=== PATIENT | male | born 1965 | race Caucasian/White ===

== ENCOUNTER 2020-01-17 12:28 | Inpatient (IN) | payer OTHER ==
[2020-01-17] MEDS ORDERED: NICOTINE POLACRILEX 2 MG GUM BUC PRN (14:30)
[2020-01-17] MEDS ORDERED: IBUPROFEN 400 MG TABLET (FP) PO PRN (14:30)
[2020-01-17] MEDS ORDERED: chlordiazePOXIDE HCL 25 MG CAPSULE PO PRN (14:30)
[2020-01-17] MEDS ORDERED: ONDANSETRON *ODT* 4 MG TABLET SL PRN (14:30)
[2020-01-17] MEDS ORDERED: MAGNESIUM HYDROX 2400MG/30ML ORAL SUSPENSION 30 ML CUP PO PRN (14:30)
[2020-01-17] MEDS ORDERED: ACETAMINOPHEN 325 MG TABLET (FP) PO PRN ×2 (14:30)
[2020-01-17] MEDS ORDERED: MENTHOL/PHENOL 1 EACH UD MM PRN (14:30)
[2020-01-17] MEDS ORDERED: METHOCARBAMOL 500 MG TABLET PO PRN (14:30)
[2020-01-17] MEDS ORDERED: MAGNESIUM CITRATE 300 ML BOTTLE PO PRN (14:30)
[2020-01-17 15:30] VITALS: BMI 20.6
[2020-01-17] MEDS: NICOTINE 21 MG/24 HOURS TOPICAL PATCH TD SCH (15:38)
[2020-01-17] MEDS: hydrOXYzine PAMOATE 25 MG CAPSULE (FP) PO SCH ×2 (17:36→22:19)
[2020-01-17] MEDS: chlordiazePOXIDE HCL 25 MG CAPSULE PO SCH ×2 (17:36→22:19)
[2020-01-17] MEDS: BISMUTH SUBSALICYLATE 262 MG/15 ML BTL PO PRN (22:19)
[2020-01-17] MEDS: THIAMINE HCL 100 MG TABLET (FP) PO SCH (22:19)
[2020-01-17] MEDS: MELATONIN 5 MG TABLETS PO SCH (22:19)
[2020-01-18] MEDS: hydrOXYzine PAMOATE 25 MG CAPSULE (FP) PO SCH ×5 (05:32→22:14)
[2020-01-18] MEDS: chlordiazePOXIDE HCL 25 MG CAPSULE PO SCH ×4 (05:32→22:14)
[2020-01-18] MEDS ORDERED: METHADONE HCL 10 MG TABLET PO ONE (08:44)
[2020-01-18] MEDS ORDERED: METHADONE 80 MG, METHADONE 30 MG PO ONE (09:15)
[2020-01-18] MEDS ORDERED: METHADONE HCL 10 MG TABLET ONE (09:17)
[2020-01-18] MEDS ORDERED: METHADONE HCL 40 MG DISPERSABLE TABLET ONE (09:18)
[2020-01-18] MEDS: PRENATAL VITAMINS W/ FOLIC ACID TABLET (FP) PO SCH (10:23)
[2020-01-18] MEDS: NICOTINE 21 MG/24 HOURS TOPICAL PATCH TD SCH (10:23)
[2020-01-18 13:08] LABS: POTASSIUM 3.8 mmol/L (3.5-5.1)
[2020-01-18 13:10] LABS: HEMOGLOBIN 11.1 GM/dL (11.7-16.9); MCH 26.4 pg (25.7-33.7); MCHC 31.8 g/dl (32.0-35.9); MEAN CELL VOLUME 82.9 fl (80-96); MEAN PLT VOLUME 9.6 fl (7.5-11.1); PLATELET COUNT 76 K/MM3 (134-434); RBC 4.22 M/mm3 (4.00-5.60); RDW 16.1 % (11.9-15.9); WHITE BLOOD COUNT 4.7 K/mm3 (4.0-10.0)
[2020-01-18 13:15] LABS: CALCIUM 8.5 mg/dL (8.5-10.1)
[2020-01-18 13:16] LABS: ALBUMIN 2.8 g/dl (3.4-5.0); BLOOD UREA NITROGEN 17.5 mg/dL (7-18)
[2020-01-18 13:18] LABS: CREATININE 0.7 mg/dL (0.55-1.3)
[2020-01-18 13:19] LABS: BILIRUBIN,TOTAL 1.1 mg/dL (0.2-1)
[2020-01-18 13:20] LABS: TOT PROT 6.5 g/dl (6.4-8.2)
[2020-01-18] MEDS: THIAMINE HCL 100 MG TABLET (FP) PO SCH (22:14)
[2020-01-18] MEDS: MELATONIN 5 MG TABLETS PO SCH (22:14)
[2020-01-19] MEDS ORDERED: METHADONE HCL 10 MG TABLET ONE (04:00)
[2020-01-19] MEDS ORDERED: METHADONE HCL 40 MG DISPERSABLE TABLET ONE (04:00)
[2020-01-19] MEDS: chlordiazePOXIDE HCL 25 MG CAPSULE PO SCH ×4 (05:16→23:05)
[2020-01-19] MEDS: hydrOXYzine PAMOATE 25 MG CAPSULE (FP) PO SCH (05:16)
[2020-01-19] MEDS: METHADONE 80 MG, METHADONE 30 MG PO SCH (05:17)
[2020-01-19] MEDS: BISMUTH SUBSALICYLATE 262 MG/15 ML BTL PO PRN (05:19)
[2020-01-19] MEDS ORDERED: METHADONE HCL 40 MG DISPERSABLE TABLET PO SCH (06:00)
[2020-01-19] MEDS ORDERED: hydrOXYzine PAMOATE 25 MG CAPSULE (FP) PO PRN (09:26)
[2020-01-19] MEDS: NICOTINE 21 MG/24 HOURS TOPICAL PATCH TD SCH (10:27)
[2020-01-19] MEDS: PRENATAL VITAMINS W/ FOLIC ACID TABLET (FP) PO SCH (10:27)
[2020-01-19] MEDS: THIAMINE HCL 100 MG TABLET (FP) PO SCH (22:10)
[2020-01-19] MEDS: MELATONIN 5 MG TABLETS PO SCH (23:06)
[2020-01-20] MEDS ORDERED: chlordiazePOXIDE HCL 10 MG CAPSULE PO PRN
[2020-01-20] MEDS ORDERED: METHADONE HCL 10 MG TABLET ONE (04:34)
[2020-01-20] MEDS ORDERED: METHADONE HCL 40 MG DISPERSABLE TABLET ONE (04:34)
[2020-01-20] MEDS: chlordiazePOXIDE HCL 10 MG CAPSULE PO SCH ×4 (05:43→22:08)
[2020-01-20] MEDS: METHADONE 80 MG, METHADONE 30 MG PO SCH (05:43)
[2020-01-20] MEDS ORDERED: MASKS NR ONE (09:44)
[2020-01-20] MEDS: NICOTINE 21 MG/24 HOURS TOPICAL PATCH TD SCH (10:33)
[2020-01-20] MEDS: PRENATAL VITAMINS W/ FOLIC ACID TABLET (FP) PO SCH (10:33)
[2020-01-20 11:27] LABS: EOS % 1.6 % (0-4.5); HEMATOCRIT 38.8 % (35.4-49); HEMOGLOBIN 11.9 GM/dL (11.7-16.9); LYMPH % 19.8 % (8-40); MCH 25.7 pg (25.7-33.7); MCHC 30.7 g/dl (32.0-35.9); MEAN CELL VOLUME 83.7 fl (80-96); MEAN PLT VOLUME 9.9 fl (7.5-11.1); MONO % 8.7 % (3.8-10.2); NEUT % 68.9 % (42.8-82.8); PLATELET COUNT 69 K/MM3 (134-434); RBC 4.63 M/mm3 (4.00-5.60); RDW 16.9 % (11.9-15.9); WHITE BLOOD COUNT 6.1 K/mm3 (4.0-10.0)
[2020-01-20] MEDS: THIAMINE HCL 100 MG TABLET (FP) PO SCH (22:08)
[2020-01-20] MEDS: MELATONIN 5 MG TABLETS PO SCH (22:29)
[2020-01-21] MEDS ORDERED: METHADONE HCL 40 MG DISPERSABLE TABLET ONE (03:58)
[2020-01-21] MEDS ORDERED: METHADONE HCL 10 MG TABLET ONE (03:58)
[2020-01-21] MEDS: chlordiazePOXIDE HCL 10 MG CAPSULE PO SCH ×2 (05:16→17:46)
[2020-01-21] MEDS: METHADONE 80 MG, METHADONE 30 MG PO SCH (05:16)
[2020-01-21] MEDS: MAG HYDROX/AL HYDROX/SIMETH 30 ML UNIT-DOSE CUP PO PRN ×2 (05:19→18:48)
[2020-01-21] MEDS: PRENATAL VITAMINS W/ FOLIC ACID TABLET (FP) PO SCH (10:07)
[2020-01-21] MEDS: NICOTINE 21 MG/24 HOURS TOPICAL PATCH TD SCH (10:07)
[2020-01-21] MEDS: MELATONIN 5 MG TABLETS PO SCH (22:33)
[2020-01-21] MEDS: THIAMINE HCL 100 MG TABLET (FP) PO SCH (22:33)
[2020-01-22] MEDS ORDERED: METHADONE HCL 40 MG DISPERSABLE TABLET ONE (04:03)
[2020-01-22] MEDS ORDERED: METHADONE HCL 10 MG TABLET ONE (04:03)
[2020-01-22] MEDS ORDERED: chlordiazePOXIDE HCL 10 MG CAPSULE PO ONE (05:00)
[2020-01-22] MEDS: METHADONE 80 MG, METHADONE 30 MG PO SCH (05:09)
[2020-01-22 06:12] VITALS: BP 108/63; PULSE 71; TEMP 97.5
[2020-01-22] MEDS: MAG HYDROX/AL HYDROX/SIMETH 30 ML UNIT-DOSE CUP PO PRN (07:52)
== END 2020-01-22 08:45 | disposition home or self-care (01) | DRG 773 ==
LOC: YASAS 12:28 → Y6N 15:01
PROVIDERS: ADMIT Allergy & Immunology; ATTEND Allergy & Immunology
PROC: HZ2ZZZZ Detoxification Services for Substance Abuse Treatment (ICD-10-PCS; principal; 2020-01-17)
DX: F10.230 Alcohol dependence with withdrawal, uncomplicated (principal); F11.20 Opioid dependence, uncomplicated; F14.20 Cocaine dependence, uncomplicated; F17.210 Nicotine dependence, cigarettes, uncomplicated; D69.6 Thrombocytopenia, unspecified; Z86.19 Personal history of other infectious and parasitic diseases
CPT/HCPCS: 36415; 80053; 82947; 85025; 85027; 86780; C9803; Q0162; U0003

== ENCOUNTER 2023-10-18 16:45 | Inpatient (IN) | payer OTHER ==
[2023-10-18] MEDS ORDERED: guaiFENesin 600 MG TABLET.ER (FP) PO PRN (21:07)
[2023-10-18] MEDS ORDERED: BENZOCAINE/MENTHOL (CHLORASEPTIC ) LOZENGE MM PRN (21:07)
[2023-10-18] MEDS ORDERED: NALOXONE (NARCAN) HCL 4 MG/0.1 ML SPRAY NS PRN (21:07)
[2023-10-18] MEDS ORDERED: IBUPROFEN 600 MG TABLET (FP) PO PRN (21:07)
[2023-10-18] MEDS ORDERED: NICOTINE POLACRILEX 2 MG GUM BUC PRN (21:07)
[2023-10-18] MEDS ORDERED: IBUPROFEN 400 MG TABLET (FP) PO PRN (21:07)
[2023-10-18] MEDS ORDERED: BISMUTH SUBSALICYLATE 524 MG/30 ML PO PRN (21:07)
[2023-10-18] MEDS ORDERED: ACETAMINOPHEN 325 MG TABLET (FP) PO PRN (21:07)
[2023-10-18] MEDS ORDERED: LOPERAMIDE HCL 2 MG CAPSULE PO PRN (21:07)
[2023-10-18] MEDS ORDERED: BENZONATATE 200 MG CAPSULE PO PRN (21:07)
[2023-10-18] MEDS ORDERED: NALOXONE HCL 0.4 MG/ML VIAL IM PRN (21:07)
[2023-10-18] MEDS ORDERED: methaDONE HCL 10 MG TABLET (FOR DETOX USE ONLY) ONE (21:36)
[2023-10-18] MEDS ORDERED: MELATONIN 5 MG TABLETS ONE (21:36)
[2023-10-18] MEDS: methaDONE HCL 10 MG TABLET (FOR DETOX USE ONLY) PO ONE (21:45)
[2023-10-18] MEDS: MELATONIN 5 MG TABLETS PO SCH (21:46)
[2023-10-18] MEDS: THIAMINE 100 MG TABLET PO SCH (21:47)
[2023-10-18] MEDS ORDERED: hydrOXYzine PAMOATE 25 MG CAPSULE (FP) PO ONE (22:42)
[2023-10-18] MEDS: hydrOXYzine PAMOATE 25 MG CAPSULE (FP) PO PRN (22:50)
[2023-10-18] MEDS: TRIMETHOBENZAMIDE HCL 200MG/2ML INJ IM ONE (23:37)
[2023-10-19] MEDS: MAG HYDROX/AL HYDROX/SIMETH 30 ML UNIT-DOSE CUP PO PRN (07:11)
[2023-10-19] MEDS: PRENATAL VITAMINS W/ FOLIC ACID TABLET (FP) PO SCH (10:20)
[2023-10-19] MEDS: NICOTINE 14 MG/24 HOURS TOPICAL PATCH TD SCH (10:20)
[2023-10-19] MEDS: cloNIDine HCL 0.1 MG TABLET PO PRN (18:14)
[2023-10-19] MEDS: TRIMETHOBENZAMIDE HCL 200MG/2ML INJ IM ONE (19:52)
[2023-10-20] MEDS: ONDANSETRON *ODT* 4 MG TABLET SL PRN (06:27)
[2023-10-20] MEDS: methaDONE HCL 10 MG TABLET (FOR DETOX USE ONLY) PO ONE (09:54)
[2023-10-20] MEDS: METHOCARBAMOL 500 MG TABLET PO PRN (09:56)
[2023-10-20] MEDS: MAGNESIUM HYDROX 2400MG/30ML ORAL SUSPENSION 30 ML CUP PO PRN (15:43)
[2023-10-20] MEDS: DICYCLOMINE HCL 10 MG CAPSULE PO PRN (16:55)
[2023-10-20] MEDS: POLYETHYLENE GLYCOL (HEALTHYLAX) 3350 17 GM PACKET PO PRN (18:46)
[2023-10-20] MEDS: LACTULOSE 20 GM/30 ML UDC (FOR ORAL USE ONLY) PO ONE (19:31)
[2023-10-20] MEDS: SODIUM PHOSPHATE/NA BIPHOS 133 ML ENEMA RC ONE (20:26)
[2023-10-20] MEDS: diphenhydrAMINE HCL 25 MG CAPSULE (FP) PO PRN (22:27)
[2023-10-20] MEDS: DOCUSATE SODIUM 100 MG CAPSULE (FP) PO SCH (23:27)
[2023-10-21 13:33] VITALS: RESP 18
[2023-10-21 16:57] VITALS: BP 129/78; PULSE 87; TEMP 98.7
[2023-10-22] MEDS ORDERED: methaDONE HCL 10 MG TABLET (FOR DETOX USE ONLY) PO ONE (10:00)
== END 2023-10-21 18:33 | disposition left against medical advice (07) | DRG 770 ==
LOC: YASAS 16:45 → Y3N 23:08
PROVIDERS: ADMIT Allergy & Immunology; ATTEND Surgery
PROC: HZ2ZZZZ Detoxification Services for Substance Abuse Treatment (ICD-10-PCS; principal; 2023-10-18)
DX: F11.23 Opioid dependence with withdrawal (principal); F14.20 Cocaine dependence, uncomplicated; F12.20 Cannabis dependence, uncomplicated; F17.210 Nicotine dependence, cigarettes, uncomplicated; F19.24 Other psychoactive substance dependence with psychoactive substance-induced mood disorder; F41.9 Anxiety disorder, unspecified; B18.2 Chronic viral hepatitis C; G47.00 Insomnia, unspecified; I10 Essential (primary) hypertension; K74.60 Unspecified cirrhosis of liver
CPT/HCPCS: 80305; 80307; 93005; 93010; Q0162